=== PATIENT | female | born 1980 | race Caucasian/White ===

== ENCOUNTER 2016-04-20 13:55 | Emergency (ER) | payer SELFPAY ==
[2016-04-20 14:21] VITALS: TEMP 98.1; BMI 29.6
--- NOTE | 2016-04-20 15:01 | PDOC ---
History of Present Illness - General History Source: Patient Exam Limitations: No Limitations - History of Present Illness Initial Comments: CHIEF COMPLAINT: 36 y/o afebrile female with PMH umbilical hernia c/o abdominal pain today. HISTORY OF PRESENT ILLNESS: The patient states her doctor told her a few months ago that she has a umbilical hernia. This morning she states the hernia "popped out" and became very painful. On her way to the ER the hernia popped back in and her abdominal pain has mostly resolved. She denies f/c, n/v/d, CP, SOB, back pain, hematuria. dysuria. Vital signs on arrival are within normal limits. REVIEW OF SYSTEMS: GENERAL/CONSTITUTIONAL: No fever/chills. No weakness. No weight change. HEAD, EYES, EARS, NOSE AND THROAT: No change in vision. No ear pain or discharge. No sore throat. CARDIOVASCULAR: No chest pain or shortness of breath. RESPIRATORY: No cough, wheezing, or hemoptysis. GASTROINTESTINAL: +abd pain - resolved. No nausea, vomiting, diarrhea, constipation. GENITOURINARY: No dysuria, frequency, or change in urination. MUSCULOSKELETAL: No joint or muscle swelling or pain. No neck or back pain. SKIN: No rash or easy bruising. NEUROLOGIC: No headache, vertigo, loss of consciousness, or loss of sensation. PHYSICAL EXAM: GENERAL: The patient is awake, alert, and fully oriented, in no acute distress. She is very well appearing, ambulatory, in NAD or obvious discomfort. HEAD: Normal with no signs of trauma. ENT: Pupils equal, round and reactive to light, extraocular movements intact, sclera anicteric, conjunctiva clear. Neck supple. LUNGS: Clear to auscultation bilaterally. Normal excursion. No respiratory distress or use of accessory muscles. CV: RRR, S1/S2, no MRG. Cap refill < 2 sec. ABDOMEN: Soft, non-distended, non-tender even to deep palpation, no signs of umbilical hernia. No rebound, guarding or rigidity. EXTREMITIES: Normal range of motion, no edema. NEUROLOGICAL: Normal speech, normal gait. CN II-XII grossly intact. PSYCH: Normal mood, normal affect. SKIN: Warm, dry, normal turgor, no rashes or lesions noted. <Laura Serrano - Last Filed: 04/20/16 18:07> <Omid Grimaldo - Last Filed: 04/23/16 08:01> - General Chief Complaint: Pain, Acute Stated Complaint: SENT BY PCP FOR SUNSHINE ABD PAIN Time Seen by Provider: 04/20/16 14:19 Past History - Past Medical History Other medical history: DENIES. - Psycho/Social/Smoking Cessation Hx Suicidal Ideation: No Smoking Status: No Smoking History: Never smoked Number of Cigarettes Smoked Daily: 0 <Laura Serrano - Last Filed: 04/20/16 18:07> <Omid Grimaldo - Last Filed: 04/23/16 08:01> - Past Medical History Allergies/Adverse Reactions: Allergies Allergy/AdvReac Type Severity Reaction Status Date / Time No Known Allergies Allergy Verified 04/20/16 14:17 Home Medications: Ambulatory Orders NK [No Known Home Medication] 04/20/16 *Physical Exam - Vital Signs Last Vital Signs Temp Pulse Resp BP Pulse Ox 98.1 F 70 19 148/88 100 04/20/16 14:18 04/20/16 14:18 04/20/16 14:18 04/20/16 14:18 04/20/16 14:18 <Laura Serrano - Last Filed: 04/20/16 18:07> - Vital Signs Last Vital Signs Temp Pulse Resp BP Pulse Ox 98.1 F 63 18 143/89 99 04/20/16 14:18 04/20/16 18:48 04/20/16 18:48 04/20/16 18:48 04/20/16 18:48 <Omid Grimaldo - Last Filed: 04/23/16 08:01> ED Treatment Course - LABORATORY CBC & Chemistry Diagram: 04/20/16 15:00 04/20/16 15:00 <Laura Serrano - Last Filed: 04/20/16 18:07> - LABORATORY CBC & Chemistry Diagram: 04/20/16 15:00 04/20/16 15:00 - ADDITIONAL ORDERS Additional order review: 04/20/16 15:00 RBC 4.42 MCV 89.6 MCHC 32.5 RDW 14.3 MPV 8.8 Neutrophils % 65.9 Lymphocytes % 21.9 Monocytes % 8.2 Eosinophils % 3.1 Basophils % 0.9 <Omid Grimaldo - Last Filed: 04/23/16 08:01> Medical Decision Making - Medical Decision Making A/P: 36 y/o afebrile female with possible umbilical hernia with abd pain today. Plan is as follows: 1. Labs 2. CT scan abd/pelvis with contrast Labs ok CT scan abd/pelvis IMPRESSION: Small fat containing umbilical hernia with stranding of the mesentery within the sac that may represent incarceration in view of the clinical history. No herniating bowel loops are present. Informed the patient of the results. Will provide her with a referral to a general surgeon and suggested she make an appointment [facility] if she'd like to schedule surgery. instructed her to avoid heavy lifting and straining and take motrin if needed for pain. Instructed her to return to the ER with any worsening or concerning symptoms. The patient verbalizes understanding of all instructions, has no further questions and is awaiting discharge. <Laura Serrano - Last Filed: 04/20/16 18:07> - Medical Decision Making 04/23/16 08:01 The patient was seen and evaluated in conjunction with JESSICA Serrano under my direct supervision, ancillary studies were reviewed. I agree with the plan as outlined by JESSICA Serrano . <Omid Grimaldo - Last Filed: 04/23/16 08:01> *DC/Admit/Observation/Transfer <Laura Serrano - Last Filed: 04/20/16 18:07> <Omid Grimaldo - Last Filed: 04/23/16 08:01> Diagnosis at time of Disposition: Umbilical hernia Qualifiers: Obstruction and gangrene presence: without obstruction or gangrene Qualified Code(s): K42.9 - Umbilical hernia without obstruction or gangrene - Discharge Dispostion Disposition: HOME Condition at time of disposition: Improved - Referrals Referrals: Brandt Marquez [Staff Physician] - (Call Saturday) - Patient Instructions Printed Discharge Instructions: DI for Ventral Hernia Additional Instructions: Discharge Instructions: -Call Dr. Thompson on Saturday to schedule follow up appointment -Take Ibuprofen for pain if needed -Avoid heavy lifting and straining -Return to the ER with any worsening or concerning symptoms. Print Language: [email or web address]
[2016-04-20 15:09] LABS: BASOPHIL 0.9 % (0-2.0); EOSINOPHIL 3.1 % (0-4.5); MCH 29.2 pg (25.7-33.7); MCHC 32.5 g/dl (32.0-36.0); MEAN CELL VOLUME 89.6 fl (80-96); MEAN PLT VOLUME 8.8 fl (7.5-11.1); NEUTROPHILS 65.9 % (42.8-82.8); PLATELET COUNT 245 K/MM3 (134-434); RDW 14.3 % (11.6-15.6); WHITE BLOOD COUNT 6.6 K/mm3 (4.0-10.0)
[2016-04-20 15:33] LABS: ALBUMIN 3.8 g/dl (3.4-5.0); ANION GAP 8 (8-16); BILIRUBIN,TOTAL 0.3 mg/dL (0.2-1.0); CALCIUM 8.3 mg/dL (8.5-10.1); CO2 25 mmol/L (21-32); CREATININE 0.6 mg/dL (0.55-1.02); GLUCOSE,RANDOM 85 mg/dL (74-106); SGOT/AST 14 U/L (15-37); SGPT/ALT 22 U/L (12-78); TOT PROT 7.1 g/dl (6.4-8.2)
[2016-04-20 15:34] LABS: ALK PHOS 68 U/L (45-117)
[2016-04-20 18:49] VITALS: BP 143/89; PULSE 63
== END 2016-04-20 18:48 | disposition home or self-care (01) ==
LOC: JER 13:55
DX: K42.9 Umbilical hernia without obstruction or gangrene (principal)
CPT/HCPCS: 36415; 74177-TC; 80053; 83605; 84703; 85025; 99281-25; Q9967